=== PATIENT | male | born 1975 | race Caucasian/White ===

== ENCOUNTER 2021-08-31 14:14 | Emergency (ER) | payer OTHER, SELFPAY ==
[2021-08-31 14:19] VITALS: BP 145/96; PULSE 103; RESP 18; TEMP 36.4; O2SAT 95
--- NOTE | 2021-08-31 14:21 | W.ED.GENAD ---
Discharge Plan Disposition Patient Disposition: HOME Condition: Stable Discharge Details Clinical Impression: Sinusitis Primary Care Provider: Unknown,Unknown ED Provider: Tone Huerta Home Meds and New Rx's Prescriptions: New amoxicillin 875 mg tablet 875 mg PO BID Qty: 20 RF: 0 Continued albuterol sulfate 1.25 mg/3 mL Solution For Nebulization 1.25 mg inhalation PRN PRNRF: 0 clonazepam 0.5 mg Tablet 0.5 mg PO PRN PRNRF: 0 fluticasone propionate 50 mcg/actuation Gurley,Suspension 1 spray INTRANASAL DAILY RF: 0 Discharge Instructions Instructions: Sinusitis (ED) Additional Instructions: Amoxicillin as directed. Continue taking your Claritin but I do recommend adding on a decongestant as well. I also recommend that she quit smoking. Please watch for new or worsening symptoms and return to the ER for any concerns. Lastly, I have given you the name and number of our local ENT specialist for you to follow-up with for your chronic sinusitis Referrals: Srini Byers MD [ [facility] STAFF PHYSICIAN] - Medical Decision Making 46-year-old gentleman, current smoker, history of chronic sinusitis, presents for worsening sinus pain and pressure associated with congestion over the past 7 days. Patient states that typically when symptoms persist this long with nasal spray, antihistamines, [place] pot, he typically requires antibiotics. Clinically he appears well, nontoxic, afebrile, no lymphadenopathy but does have discomfort across the maxillary and frontal sinuses, slightly worse on the right side. We discussed the importance of smoking cessation, adding on a decongestant to his regiment, and a referral to ENT. He does have a send out Covid test pending from yesterday. I will provide a prescription for amoxicillin 875 twice daily given the duration and severity of the symptoms. Patient is comfortable this plan and has no additional questions or concerns. Standard discharge and return precautions provided This documentation was generated using [employer] system, please disregard any oddities of phrase or misspellings. HPI General Mode of arrival: ambulatory. Date/Time Provider Initiated Documentation: 08/31/21 14:17. Limitations to Documentation: no limitations. Information obtained by: patient. HPI Narrative: This is a 45-year-old gentleman, half a pack a day smoker, past medical history that includes chronic sinusitis presented to the ER reporting sinus pain and pressure for at least 7 days. Patient states that he uses nasal spray and a [place] pot on a daily basis and has added on Claritin over the past several days the symptoms not improving. He reports dull headache, moderate sinus pressure and pain, congestion. He denies fever, neck pain, sore throat, cough, breath. Does report mild bilateral ear pressure. At work yesterday he was tested for Covid, the send out test is pending. He is fully vaccinated and has had his booster for Covid. Related Data Home Medications Medication Instructions Recorded Confirmed albuterol sulfate 1.25 mg INHALATION PRN PRN 08/31/21 08/31/21 amoxicillin 875 mg PO BID #20 tab 08/31/21 clonazepam 0.5 mg PO PRN PRN 08/31/21 08/31/21 fluticasone propionate 1 spray INTRANASAL DAILY 08/31/21 08/31/21 Previous Rx's Medication Instructions Recorded amoxicillin 875 mg PO BID #20 tab 08/31/21 Review of Systems Constitutional Constitutional: Denies fever(s) and Reports headache(s) ENT Ears, Nose, Mouth, and Throat: Reports headache(s), Reports nasal congestion and Denies sore throat Cardiovascular Cardiovascular: Denies dyspnea Respiratory Respiratory: Denies cough and Denies dyspnea Integumentary/Breasts Skin/Breast: Denies rash Neurologic Neurologic: Reports headache(s) PFSH All Active Problems Sinusitis (Acute) Social History Smoking/Tobacco Use Status: Current every day Tobacco Type: cigarettes Smoking risk assessment performed?: Yes Alcohol Intake: never Drug use: Never Substance use type: does not use Do you feel safe at home: Yes Do you feel safe in your relationship?: Yes Exam Const General: cooperative, healthy appearing, comfortable and no acute distress Orientation: alert and awake [facility] Head: normal to inspection, normocephalic and atraumatic Ears: external ears normal, TM's normal bilaterally and EAC's normal General nose exam: external nose normal, mucous membranes and turbinates abnormal erythematous and nasal discharge clear Face and sinus: normal facial exam and sinus tenderness frontal and maxillary Mouth: moist mucous membranes Throat: posterior oropharynx normal Eyes General: appearance normal, both eyes and all related structures Conjunctivae: conjunctivae normal Neck Neck: normal visual inspection, full ROM, no lymphadenopathy, no meningeal signs, trachea midline, supple and nontender Resp Effort & Inspection: normal respiratory effort and able to speak in complete sentences Auscultation: clear to auscultation bilaterally Cardio Rate: regular rate Rhythm: regular rhythm Skin General skin exam: no rashes or lesions noted Neuro General: patient alert, patient awake, moves all extremities and no focal motor deficits Sensory Exam: no sensory deficits noted Psych Appearance: grossly normal Mental Status: mental status grossly normal
[2021-08-31 14:27] VITALS: RESP 18
== END 2021-08-31 14:55 | disposition home or self-care (01) ==
PROVIDERS: Emergency Provider Physician Assistant
DX: J01.90 Acute sinusitis, unspecified (principal)
CPT/HCPCS: 99283

== ENCOUNTER 2022-06-28 14:14 | Emergency (ER) | payer MEDICAID, SELFPAY ==
[2022-06-28] VITALS (31 sets, daily range): BP systolic 119–138; BP diastolic 66–83; PULSE 70–92; RESP 6–23; TEMP 36.3; O2SAT 91–97
--- NOTE | 2022-06-28 14:15 | RT.EKG_ITS ---
APPROVED REPORT Exam: Resting ECG Reason for Exam: chest pain Patient Location: E HR:93 bpm ECG Measurements Heart Rate 93 AXIS VA 232 P 173 QRSd 103 QRS 58 QT 337 T 99 QTc 415 Conclusion Sinus or ectopic atrial rhythm...P axis (-45,135) Prolonged VA interval...VA >205, V-rate 91-120 sinus rhythm, normal axis, normal intervals, consider U waves v artifact
--- NOTE | 2022-06-28 14:30 | DI.RAD_ITS ---
Exam(s) XR CHEST 2V PA LATERAL EXAM: XR CHEST 2V PA LATERAL CLINICAL HISTORY: chest pain TECHNIQUE: 2D digital imaging was performed of the chest. Two images were obtained. PA and lateral views were obtained. COMPARISON: No exams were available for comparison FINDINGS: MEDIASTINUM: Normal. HEART: Normal. PULMONARY VASCULATURE: Normal. LUNGS: Clear. PLEURAL SPACE: No pleural effusion or pneumothorax. BONE:Within normal limits for the patient's age. OTHER FINDINGS:Normal. IMPRESSION: No acute pulmonary findings. DATA REPOSITORY: RADIATION DOSE DELIVERED:
--- NOTE | 2022-06-28 14:34 | ED.GENADUL_ITS ---
Discharge Plan Disposition Patient Disposition: STILL A PATIENT Condition: Stable Discharge Details Chief Complaint: Chest Pain Clinical Impression: Chest pain Primary Care Provider: Mattie Kinney ED Provider: Tone Huerta Home Meds and New Rx's Prescriptions: No Action albuterol sulfate 1.25 mg/3 mL Solution For Nebulization 1.25 mg inhalation PRN PRN clonazepam 0.5 mg Tablet 0.5 mg PO PRN PRN Medical Decision Making This is a 46-year-old gentleman who reports chronic pain for at least a couple of years, noticed some left anterior chest wall pain which was different over the past couple of days but much more severe just prior to arrival. Clinically he appears well, nontoxic. There is certainly appears to be a musculoskeletal component of this through his trapezius-shoulder. Patient is specifically concerned this may be a cardiac etiology. Low suspicion for ACS but will provide full dose aspirin and initiate cardiac work-up. Per the PERC criteria, will not pursue D-dimer. Given his other myalgias, will obtain inflammatory markers as well. Laboratory values reveal no evidence of leukocytosis or anemia. Platelet count appropriate at 256. ESR normal at 8, electrolytes unremarkable, renal function normal, magnesium 1.8 initial troponin less than 50. CRP minimally elevated at 0.53. COVID-negative. Awaiting chest x-ray Plan to provide IV Toradol for discomfort. Patient agreeable to awaiting delta troponin. At time of discharge awaiting chest x-ray, reevaluation status post administration of Toradol, and delta troponin. Assuming patient is improving, delta troponin remains unremarkable, will likely discharge home with outpatient follow-up. Patient is agreeable to this plan. This documentation was generated using [employer] dictation system, please disregard any oddities of phrase or misspellings. Medical Records Medical records reviewed: Yes I reviewed the patient's medical records. Lab Data Lab results reviewed: Yes I reviewed the patient's lab results. Labs: Laboratory Tests Range/Units 06/28/22 06/28/22 06/28/22 14:36 14:36 14:36 WBC (4.4-10.8) 10^3/uL 10.28 RBC (4.36-5.78) 10^6/uL 4.87 Hgb (13.5-17.5) g/dL 15.1 Hct (40.0-50.0) % 45.0 MCV (80-95) fL 92 MCH (27.0-33.0) pg 31.0 MCHC (32.0-36.0) % 33.6 RDW (11.8-14.1) % 13.2 Plt Count (130-400) 10^3/uL 256 MPV (8.0-11.0) fL 10.1 Immature Gran % 0.3 Neutrophils % 62.4 Lymphocytes % 26.0 Monocytes % 7.6 Eosinophils % 3.0 Basophils % 0.7 Nucleated RBC % (0.0-0.3) % 0.0 Absolute Neutrophils (1.2-6.7) 10^3/uL 6.42 Absolute Lymphocytes (1.2-3.4) 10^3/uL 2.67 Absolute Monocytes (0.1-0.8) 10^3/uL 0.78 Absolute Eosinophils (0.0-0.7) 10^3/uL 0.31 Absolute Basophils (0.0-0.2) 10^3/uL 0.07 ESR (0-15) mm/hr Sodium (136-145) mmol/L 142 Potassium (3.5-5.1) mmol/L 4.0 Chloride (98-107) mmol/L 106 Carbon Dioxide (21.0-32.0) mmol/L 29.0 Anion Gap (3-11) mmol/L 7.0 BUN (7-18) mg/dL 18 Creatinine (0.70-1.30) mg/dL 0.8 Est GFR (CKD-EPI 2020) (mL/min/1.73m2) 109.85 Glucose (74-106) mg/dL 105 Calcium (8.5-10.1) mg/dL 9.2 Magnesium (1.8-2.4) mg/dL 1.8 Total Bilirubin (0.2-1.0) mg/dL 0.2 AST (15-37) U/L 7 L ALT (16-63) U/L 22 Alkaline Phosphatase (46-116) U/L 87 Troponin I (<or=60) ng/L < 50 C-Reactive Protein (0.0-0.3) mg/dL 0.53 H Total Protein (6.4-8.2) g/dL 7.2 Albumin (3.4-5.0) g/dL 3.8 COVID-19 Source SARS-CoV-2 (PCR) (Negative) Range/Units 06/28/22 06/28/22 14:36 14:46 WBC (4.4-10.8) 10^3/uL RBC (4.36-5.78) 10^6/uL Hgb (13.5-17.5) g/dL Hct (40.0-50.0) % MCV (80-95) fL MCH (27.0-33.0) pg MCHC (32.0-36.0) % RDW (11.8-14.1) % Plt Count (130-400) 10^3/uL MPV (8.0-11.0) fL Immature Gran % Neutrophils % Lymphocytes % Monocytes % Eosinophils % Basophils % Nucleated RBC % (0.0-0.3) % Absolute Neutrophils (1.2-6.7) 10^3/uL Absolute Lymphocytes (1.2-3.4) 10^3/uL Absolute Monocytes (0.1-0.8) 10^3/uL Absolute Eosinophils (0.0-0.7) 10^3/uL Absolute Basophils (0.0-0.2) 10^3/uL ESR (0-15) mm/hr 8 Sodium (136-145) mmol/L Potassium (3.5-5.1) mmol/L Chloride (98-107) mmol/L Carbon Dioxide (21.0-32.0) mmol/L Anion Gap (3-11) mmol/L BUN (7-18) mg/dL Creatinine (0.70-1.30) mg/dL Est GFR (CKD-EPI 2020) (mL/min/1.73m2) Glucose (74-106) mg/dL Calcium (8.5-10.1) mg/dL Magnesium (1.8-2.4) mg/dL Total Bilirubin (0.2-1.0) mg/dL AST (15-37) U/L ALT (16-63) U/L Alkaline Phosphatase (46-116) U/L Troponin I (<or=60) ng/L C-Reactive Protein (0.0-0.3) mg/dL Total Protein (6.4-8.2) g/dL Albumin (3.4-5.0) g/dL COVID-19 Source Nasal/Nares SARS-CoV-2 (PCR) (Negative) Negative ECG Data Attestation: I personally reviewed and interpreted this ECG (s) as follows: Interpretation: Sinus or ectopic atrial rhythm, ventricular rate of 93, prolonged [place] interval, no STEMI. HPI General Mode of arrival: ambulatory . Date/Time Provider Initiated Documentation: 06/28/22 14:16 . Limitations to Documentation: no limitations . Information obtained by: patient . HPI Narrative: This is a 46-year-old gentleman, current smoker, reports that he is currently being worked up at [facility] for potential RA, presenting to the ER for a left-sided chest pain. Patient reports several years of atypical joint, muscle pain, mostly in his bilateral shoulders, upper extremities, sometimes lower extremities, etc. This is being worked up as an outpatient. He states that over the past couple of days he felt slightly different pain in his left lateral chest, anterior aspect. Nothing really makes his pain worse or better. He states just prior to arrival while shopping the pain was severe, he was concerned that he may be having a heart attack, came to the ER for further evaluation. He denies recent illness, trauma, headache, shortness of breath, cough, numbness, tingling, weakness, abdominal pain, pain or swelling in his calves. He has not taken any medication prior to arrival. Related Data Home Medications Medication Instructions Recorded Confirmed albuterol sulfate 1.25 mg/3 mL 1.25 mg inhalation PRN PRN 08/31/21 06/28/22 solution for nebulization clonazepam 0.5 mg tablet 0.5 mg PO PRN PRN 08/31/21 06/28/22 Allergies Allergy/AdvReac Type Severity Reaction Status Date / Time clindamycin Allergy Intermediate Hives Unverified 06/28/22 14:29 General Stated Complaint: Chest Pain [place]: 2 Review of Systems Constitutional Constitutional: Denies fatigue, Denies fever(s), Denies headache(s) and Denies weakness ENT Ears, Nose, Mouth, and Throat: Denies headache(s) and Reports neck pain Cardiovascular Cardiovascular: Reports chest pain and Denies dyspnea Respiratory Respiratory: Denies cough and Denies dyspnea Gastrointestinal Gastrointestinal: Denies abdominal pain, Denies nausea and Denies vomiting Musculoskeletal Musculoskeletal: Reports back pain, Reports neck pain, Denies numbness and Denies tingling Integumentary/Breasts Skin/Breast: Denies rash Neurologic Neurologic: Denies headache(s), Denies numbness, Denies tingling and Denies weakness Endocrine Endocrine: Denies fatigue Hematologic/Lymphatic Hematologic/Lymphatic: Denies easy bleeding and Denies easy bruising PFSH All Active Problems (Updated 06/28/22 @ 15:39 by LOUIE Green) Sinusitis (Acute) Chest pain (Acute) Social History Smoking/Tobacco Use Status: Current every day Tobacco Type: cigarettes Smoking risk assessment performed?: Yes Alcohol Intake: never Drug use: Never Substance use type: does not use Do you feel safe at home: Yes Do you feel safe in your relationship?: Yes Exam Const General: cooperative, healthy appearing, comfortable and no acute distress Orientation: alert, awake and oriented x3 HENMT Head: normal to inspection, normocephalic and atraumatic Face and sinus: normal facial exam Mouth: moist mucous membranes Eyes General: appearance normal, both eyes and all related structures Conjunctivae: conjunctivae normal Neck Neck: normal visual inspection, full ROM, no meningeal signs, trachea midline, s upple and tender (Left trapezius) Chest Chest: normal inspection of the chest and normal palpation of entire chest wall Resp Effort & Inspection: normal respiratory effort and able to speak in complete sentences Auscultation: clear to auscultation bilaterally Cardio Rate: regular rate Rhythm: regular rhythm GI Palpation: soft and nontender Back/Spine/Pelvis Back: no CVA tenderness and No back tenderness Skin General skin exam: no rashes or lesions noted Neuro General: patient alert, patient awake, moves all extremities and no focal motor deficits Cognition: normal cognition Speech: speech normal Gait: normal gait Motor: muscle tone normal throughout Sensory Exam: no sensory deficits noted Extrem General: normal to inspection, full ROM, capillary refill normal, no pedal edema and no calf tenderness Psych Appearance: grossly normal Mental Status: mental status grossly normal Course Vital Signs Vital signs: Vital Signs Temperature 36.3 C L 06/28/22 14:18 Pulse 92 H 06/28/22 14:18 Respiratory Rate 16 06/28/22 14:18 Blood Pressure 130/81 06/28/22 14:18 Pulse Oximetry 97 06/28/22 14:18 Temperature 36.3 C L 06/28/22 14:18 Temperature Source Tympanic 06/28/22 14:18 Pulse 92 H 06/28/22 14:18 Respiratory Rate 16 06/28/22 14:25 Respiratory Effort Non-Labored 06/28/22 14:25 Respiratory Depth Normal 06/28/22 14:25 Respiratory Pattern Normal 06/28/22 14:25 Blood Pressure 130/81 06/28/22 14:18 Blood Pressure Position Supine 06/28/22 14:18 Pulse Oximetry 97 06/28/22 14:18 Oxygen Delivery Method Room Air 06/28/22 14:18 Oxygen Flow Rate 0 06/28/22 14:18 Pain Level 8 06/28/22 14:25
[2022-06-28 14:47] LABS: Abs Immature Grans 0.03 10^3/uL (0.0-0.06); Absolute Basophil Count 0.07 10^3/uL (0.0-0.2); Absolute Eosinophil Count 0.31 10^3/uL (0.0-0.7); Absolute Lymphocyte Count 2.67 10^3/uL (1.2-3.4); Absolute Monocyte Count 0.78 10^3/uL (0.1-0.8); Absolute Neutrophil Count 6.42 10^3/uL (1.2-6.7); Basophils % 0.7; HGB 15.1 g/dL (13.5-17.5); Immature Grans % 0.3; MCHC 33.6 % (32.0-36.0); MCV 92 fL (80-95); MPV 10.1 fL (8.0-11.0); Monocytes % 7.6; Neutrophils % 62.4; Platelet Count 256 10^3/uL (130-400); RBC 4.87 10^6/uL (4.36-5.78); RDW 13.2 % (11.8-14.1); RDW-SD 45.1 fL; WBC 10.28 10^3/uL (4.4-10.8)
[2022-06-28] MEDS: Aspirin 81 MG CHEW 324 MG CH (14:48)
[2022-06-28 14:50] LABS: Source Nasal/Nares
[2022-06-28 15:21] LABS: ALT 22 U/L (16-63); AST 7 U/L (15-37); Albumin 3.8 g/dL (3.4-5.0); Alkaline Phosphatase 87 U/L (46-116); BUN 18 mg/dL (7-18); Bilirubin, Total 0.2 mg/dL (0.2-1.0); CREATININE 0.8 mg/dL (0.70-1.30); Calcium 9.2 mg/dL (8.5-10.1); Chloride 106 mmol/L (98-107); Estimated GFR 109.85 (mL/min/1.73m2); Glucose 105 mg/dL (74-106); Magnesium 1.8 mg/dL (1.8-2.4); Sodium 142 mmol/L (136-145); Total Protein 7.2 g/dL (6.4-8.2); Troponin I < 50 ng/L (<or=60)
[2022-06-28 15:24] LABS: ESR 8 mm/hr (0-15)
[2022-06-28 15:31] LABS: C-Reactive Protein 0.53 mg/dL (0.0-0.3)
[2022-06-28 15:33] LABS: COVID-19 PCR Negative (Negative)
[2022-06-28] MEDS: Ketorolac 30 MG/ML VIAL IVP (15:35)
--- NOTE | 2022-06-28 16:19 | DI.VRAD_ITS ---
PROCEDURE INFORMATION: Exam: XR Chest Exam date and time: 06/28/2022 2:57 PM Age: 46 years old Clinical indication: Other: Chest pain TECHNIQUE: Imaging protocol: Radiologic exam of the chest. Views: 2 views. COMPARISON: No relevant prior studies available. FINDINGS: Lungs: Unremarkable. No consolidation. Pleural spaces: Unremarkable. No pleural effusion. No pneumothorax. Heart/Mediastinum: Unremarkable. No cardiomegaly. Bones/joints: Unremarkable. IMPRESSION: No acute findings. Dictated and Authenticated by: Yancy Yarbrough MD. Ordering:EDUARDO Wayne MD
[2022-06-28 18:20] LABS: Troponin I < 50 ng/L (<or=60)
== END 2022-06-28 18:45 | disposition still patient (30) ==
PROVIDERS: Physician Assistant; Emergency Provider Physician Assistant; PCP Family Medicine
DX: R07.89 Other chest pain (principal); F17.210 Nicotine dependence, cigarettes, uncomplicated; Z20.822 Contact with and (suspected) exposure to COVID-19; R79.82 Elevated C-reactive protein (CRP)
CPT/HCPCS: 36415; 80053; 85652; 87635; 93005; 96374; 99284; 71046; 83735; 84484; 85025; 86140; 93010; 99285; J1885

== ENCOUNTER 2023-09-21 11:58 | Outpatient (REF) | payer OTHER, BC, SELFPAY ==
--- NOTE | 2023-09-21 11:15 | SKI_PTH ---
PATIENT: Girish Soria LOC: [facility] U#:[id number] AGE/SX: 47/M ROOM: RE09/21/[address]: Srini Byers MD : 1975 BED: DIS: 09/21/2023 SPEC #: [id number] RECD: 09/21/23 18:07 STATUS: OSWALDO REPablo #: [id number] MARNIE: 09/21/23 11:[address]: Srini Byers DEPT: Surgical Specimen RECD BY: Jen Drake ENTERED: 09/21/23 18:08 SP TYPE: MARY KATE MELÉNDEZ DR: Franc Bourgeois Tissues: 1 - SKIN BIOPSY(SHAVE/PUNCH) 2 - UVULA Procedures: GROSS AND MICRO LEVEL 4 SKIN LEVEL 4 Comments: [id number]
== END 2023-09-21 11:59 | disposition home or self-care (01) ==
LOC: LBN 11:58
PROVIDERS: PCP Family Medicine; Visit Provider Otolaryngology
DX: D04.39 Carcinoma in situ of skin of other parts of face (principal)
CPT/HCPCS: 88305; 88304

== ENCOUNTER 2023-09-27 14:48 | Outpatient (REF) | payer OTHER, BC, SELFPAY ==
--- NOTE | 2023-09-27 11:40 | SKI_PTH ---
PATIENT: Girish Soria LOC: [facility] U#:[id number] AGE/SX: 48/M ROOM: RE09/27/[address]: Srini Byers MD : 1975 BED: DIS: 09/27/2023 SPEC #: [id number] RECD: 09/27/23 16:01 STATUS: OSWALDO REPablo #: [id number] MARNIE: 09/27/23 11:[address]: Srini Byers DEPT: Surgical Specimen RECD BY: Jen Drake ENTERED: 09/27/23 16:01 SP TYPE: MARY KATE MELÉNDEZ DR: Franc Bourgeois Tissues: 1 - SKIN BIOPSY(SHAVE/PUNCH) Procedures: SKIN LEVEL 4 Comments: [id number]
== END 2023-09-27 14:49 | disposition home or self-care (01) ==
LOC: LBN 14:48
PROVIDERS: PCP Family Medicine; Visit Provider Otolaryngology
DX: C44.319 Basal cell carcinoma of skin of other parts of face (principal)
CPT/HCPCS: 88305

== ENCOUNTER 2023-10-14 10:29 | Outpatient (REF) | payer OTHER, BC, SELFPAY ==
[2023-10-14 14:58] LABS: HCT 48.7 % (40.0-50.0); HGB 16.3 g/dL (13.5-17.5); MCH 30.7 pg (27.0-33.0); MCHC 33.5 % (32.0-36.0); MCV 92 fL (80-95); MPV 10.7 fL (8.0-11.0); Platelet Count 280 10^3/uL (130-400); RBC 5.31 10^6/uL (4.36-5.78); RDW 13.3 % (11.8-14.1); RDW-SD 45.3 fL; WBC 10.78 10^3/uL (4.4-10.8)
[2023-10-14 15:02] LABS: ESR 11 mm/hr (0-15)
[2023-10-14 15:30] LABS: ALT 37 U/L (16-63); AST 14 U/L (15-37); Alkaline Phosphatase 82 U/L (46-116); Anion Gap 6.2 mmol/L (3-11); BUN 11 mg/dL (7-18); Bilirubin, Total 0.5 mg/dL (0.2-1.0); CO2 31.8 mmol/L (21.0-32.0); CREATININE 0.8 mg/dL (0.70-1.30); Calcium 9.3 mg/dL (8.5-10.1); Calculated LDL 84 mg/dL (<100); Chloride 103 mmol/L (98-107); Cholesterol 153 mg/dL (<200); Estimated GFR 108.49 (mL/min/1.73m2); Glucose 96 mg/dL (74-106); HDL Cholesterol 60 mg/dL (40-60); Potassium 4.5 mmol/L (3.5-5.1); Sodium 141 mmol/L (136-145); Total Protein 7.2 g/dL (6.4-8.2); Triglyceride 49 mg/dL (<150)
== END 2023-10-14 10:30 | disposition home or self-care (01) ==
LOC: NCHCN 10:29
PROVIDERS: PCP Family Medicine; Visit Provider Family Medicine
DX: Z00.00 Encounter for general adult medical examination without abnormal findings (principal)
CPT/HCPCS: 80053; 80061; 85027; 85652

== ENCOUNTER 2024-01-19 10:11 | Outpatient (REF) | payer OTHER, SELFPAY ==
[2024-01-19 14:43] LABS: C-Reactive Protein 0.56 mg/dL (<or=0.5); TSH (W/Ref FT4) 1.47 uIU/mL (0.36-3.74)
[2024-01-19 22:18] LABS: Rheumatoid Factor 13.5 IU/mL (<12.0)
[2024-01-20 08:46] LABS: Cyclic Citrullinated Peptide <2.5 U/mL (<5.0)
[2024-01-20 13:28] LABS: ANA Interpretation Negative (Negative)
[2024-02-01 17:34] LABS: Testosterone, Free 7.83 ng/dL (4.26-16.4); Testosterone, Total 308 ng/dL (240-950)
== END 2024-01-19 10:12 | disposition home or self-care (01) ==
LOC: NCHCN 10:11
PROVIDERS: PCP Family Medicine; Visit Provider Family Medicine
DX: M25.50 Pain in unspecified joint (principal); R53.83 Other fatigue
CPT/HCPCS: 84402; 84403; 86200; 84443; 86038; 86140; 86431

== ENCOUNTER 2024-06-28 16:38 | Outpatient (REF) | payer OTHER, SELFPAY ==
[2024-06-30 15:28] LABS: Chlamydia Result Negative (Negative); GC Result Negative (Negative)
== END 2024-06-28 16:39 | disposition home or self-care (01) ==
LOC: LBN 16:38
PROVIDERS: PCP Family Medicine; Visit Provider Physician Assistant Medical
DX: R30.0 Dysuria (principal)
CPT/HCPCS: 87491; 87591

== ENCOUNTER 2025-01-16 18:56 | Emergency (ER) | payer OTHER, SELFPAY ==
[2025-01-16 19:00] VITALS: BP 143/83; PULSE 84; RESP 20; TEMP 36.9; O2SAT 94
--- NOTE | 2025-01-16 19:00 | RT.EKG_ITS ---
APPROVED REPORT Exam: Resting ECG Reason for Exam: chest tightness Patient Location: E HR:83 bpm ECG Measurements Heart Rate 83 AXIS NE 172 P 45 QRSd 115 QRS -42 QT 359 T 61 QTc 423 Conclusion Sinus rhythm 83 normal axis no stemi
--- NOTE | 2025-01-16 19:30 | DI.RAD_ITS ---
Exam(s) XR CHEST 2V PA LATERAL EXAM: XR CHEST 2V PA LATERAL CLINICAL HISTORY: Chest pain TECHNIQUE: 2D digital imaging was performed. Two views. COMPARISON: CR,XR XR CHEST 2V PA LATERAL from 06/28/2022 FINDINGS: HEART: Normal size. Aorta: Not dilated. PULMONARY VASCULATURE: Normal. MEDIASTINUM: Unremarkable. LUNGS: Clear. PLEURAL SPACE: No pleural effusion or pneumothorax. BONE:Unremarkable for age. SOFT TISSUES: Unremarkable. IMPRESSION: No acute abnormality. DATA REPOSITORY: RADIATION DOSE DELIVERED:
[2025-01-16] MEDS: Aspirin 81 MG CHEW 324 MG CH (19:40)
[2025-01-16 19:44] LABS: Abs Immature Grans 0.04 10^3/uL (0.0-0.06); Absolute Basophil Count 0.06 10^3/uL (0.0-0.2); Absolute Eosinophil Count 0.31 10^3/uL (0.0-0.7); Absolute Lymphocyte Count 3.19 10^3/uL (1.2-3.4); Absolute Monocyte Count 0.96 10^3/uL (0.1-0.8); Basophils % 0.5 %; Eosinophils % 2.8 %; HCT 47.3 % (40.0-50.0); Immature Grans % 0.4 %; Lymphocytes % 28.6 %; MCH 30.7 pg (27.0-33.0); MCHC 33.8 % (32.0-36.0); MCV 91 fL (80-95); MPV 10.1 fL (8.0-11.0); Monocytes % 8.6 %; Neutrophils % 59.1 %; Platelet Count 239 10^3/uL (130-400); RBC 5.22 10^6/uL (4.36-5.78); RDW 13.3 % (11.8-14.1); RDW-SD 44.8 fL; WBC 11.17 10^3/uL (4.4-10.8)
[2025-01-16 19:48] VITALS: RESP 20
[2025-01-16 20:07] LABS: ALT 33 U/L (16-63); AST 20 U/L (15-37); Albumin 3.8 g/dL (3.4-5.0); Alkaline Phosphatase 80 U/L (46-116); Anion Gap 5.7 mmol/L (3-11); Bilirubin, Total 0.2 mg/dL (0.2-1.0); CO2 31.3 mmol/L (21.0-32.0); CREATININE 0.8 mg/dL (0.70-1.30); Chloride 104 mmol/L (98-107); Estimated GFR 107.82 (mL/min/1.73m2); Glucose 101 mg/dL (74-106); NT-proBNP 19 pg/mL (<300); Potassium 3.9 mmol/L (3.5-5.1); Sodium 141 mmol/L (136-145); Total Protein 7.5 g/dL (6.4-8.2); Troponin I 6 ng/L (<or=76)
--- NOTE | 2025-01-16 20:11 | DI.VRAD_ITS ---
PROCEDURE INFORMATION: Exam: XR Chest Exam date and time: 01/16/2025 7:42 PM Age: 49 years old Clinical indication: Other: Chest pain TECHNIQUE: Imaging protocol: Radiologic exam of the chest. Views: 2 views. COMPARISON: CR XR CHEST 2V PA LATERAL 06/28/2022 2:57 PM FINDINGS: Lungs: Unremarkable. No consolidation. Pleural spaces: Unremarkable. No pleural effusion. No pneumothorax. Heart/Mediastinum: Unremarkable. No cardiomegaly. Bones/joints: Unremarkable. IMPRESSION: No acute findings. Dictated and Authenticated by: Elliot Figueroa MD. Orderin Angelique Akers MD
[2025-01-16 20:17] LABS: BUN 16 mg/dL (7-18)
[2025-01-16 21:15] LABS: Troponin I 5 ng/L (<or=76)
[2025-01-16 21:36] VITALS: BP 154/77; PULSE 80; RESP 16; O2SAT 95
--- NOTE | 2025-01-16 21:55 | ED.GENADUL_ITS ---
Discharge Plan Disposition Patient Disposition: Home Condition: Stable Discharge Details Clinical Impression: Chest pain Primary Care Provider: Franc Bourgeois ED Provider: Keyonna Merino Home Meds and New Rx's Prescriptions: No Action albuterol sulfate [Ventolin HFA] 90 mcg/actuation HFA aerosol inhaler 1 inh inhalation UNKNOWN triamcinolone acetonide 55 mcg aerosol,spray 1 spray intranasal DAILY Rx Instructions: administer into each nostril triamcinolone acetonide 55 mcg aerosol,spray 1 spray intranasal DAILY Rx Instructions: administer into each nostril albuterol sulfate 1.25 mg/3 mL Solution For Nebulization 1.25 mg inhalation PRN PRN clonazepam 0.5 mg Tablet 0.5 mg PO PRN PRN celecoxib 200 mg capsule 200 mg PO DAILY amoxicillin 500 mg capsule 500 mg PO DAILY betamethasone, augmented 0.05 % ointment 1 applic TOPICAL DAILY mometasone 50 mcg/actuation spray,non-aerosol 1 spray INTRANASAL BID PRN Patient Comments: USE 1 SPRAY(S) IN EACH NOSTRIL TWICE DAILY NEEDED nystatin 100,000 unit/mL suspension 1 ml PO DAILY PRN cyclobenzaprine 10 mg tablet 10 mg PO TID PRNQty: 20 0RF Discharge Instructions Additional Instructions: Your EKG, chest x-ray and blood work are all reassuring that this pain that you are feeling is not from a heart attack. It is most likely from muscle strain from coughing or and irritation around your lung lining called pleurisy. This can happen after a viral infection that you had. The treatment for this would be NSAIDs, please continue taking your regular doses. Follow-up with your PCP as needed. HPI General Date/Time Provider Initiated Documentation: 01/16/25 19:05 . Limitations to Documentation: no limitations . Information obtained by: patient . HPI Narrative: 49-year-old gentleman with past medical history of rheumatoid arthritis presents for evaluation of chest pain. He reports that a few weeks ago he had a URI and has been coughing quite a bit. He states that he was also shoveling a lot of mulch he was not sure if this caused his pain. He reports that he had left- sided chest pain that did not radiate, but then it was moved to the right side to his back, and in multiple different spots. It was not accompanied by shortness of breath, nausea or diaphoresis. He reports that he does smoke, denies diabetes and reports that his hypertension resolved after weight loss. Related Data Home Medications ?Medication ?Instructions ?Recorded ?Confirmed albuterol sulfate 1.25 mg/3 mL 1.25 mg inhalation PRN PRN 08/31/21 01/16/25 solution for nebulization clonazepam 0.5 mg tablet 0.5 mg PO PRN PRN 08/31/21 01/16/25 cyclobenzaprine 10 mg tablet 10 mg PO TID PRN #20 tabs 06/28/22 01/16/25 albuterol sulfate 90 mcg/actuation 1 inh inhalation UNKNOWN 07/30/23 01/16/25 aerosol inhaler (Ventolin HFA) triamcinolone acetonide 55 mcg 1 spray intranasal DAILY 07/30/23 01/16/25 nasal spray aerosol triamcinolone acetonide 55 mcg 1 spray intranasal DAILY 09/21/23 01/16/25 nasal spray aerosol amoxicillin 500 mg capsule 500 mg PO DAILY 01/16/25 01/16/25 betamethasone, augmented 0.05 % 1 applic topical DAILY 01/16/25 01/16/25 topical ointment celecoxib 200 mg capsule 200 mg PO DAILY 01/16/25 01/16/25 mometasone 50 mcg/actuation nasal 1 spray intranasal BID PRN 01/16/25 01/16/25 spray nystatin 100,000 unit/mL oral 1 ml PO DAILY PRN 01/16/25 01/16/25 suspension Previous Rx's ?Medication ?Instructions ?Recorded cyclobenzaprine 10 mg tablet 10 mg PO TID PRN #20 tabs 06/28/22 Allergies Allergy/AdvReac Type Severity Reaction Status Date / Time clindamycin Allergy Intermediate Hives Unverified 10/04/23 15:27 amoxicillin (From Augmentin) Allergy Verified 10/04/23 15:27 clavulanic acid (From Allergy Verified 10/04/23 15:27 Augmentin) General Stated Complaint: Chest Pain DAYLIN: 3 Exam Narrative Exam Narrative: Review of Systems: All systems reviewed & are unremarkable except as noted in HPI and below Well-developed, no acute distress NCAT PERRL, normal conjunctiva RRR mild reproducible chest wall tenderness Unlabored respiratory effort clear bilaterally Nondistended abdomen Course Vital Signs Vital signs: Vital Signs Temperature 36.9 C 01/16/25 19:00 Pulse 84 01/16/25 19:00 Respiratory Rate 20 01/16/25 19:00 Blood Pressure 143/83 H 01/16/25 19:00 Pulse Oximetry 94 01/16/25 19:00 Temperature 36.9 C 01/16/25 19:00 Temperature Source Oral 01/16/25 19:00 Pulse 80 01/16/25 21:36 Respiratory Rate 16 01/16/25 21:36 Respiratory Effort Normal, Non-Labored 01/16/25 19:48 Respiratory Depth Normal 01/16/25 19:48 Respiratory Pattern Normal 01/16/25 19:48 Blood Pressure 154/77 H 01/16/25 21:36 Blood Pressure Position Sitting 01/16/25 19:00 Pulse Oximetry 95 01/16/25 21:36 Oxygen Delivery Method Room Air 01/16/25 19:00 Oxygen Flow Rate 0 01/16/25 19:00 Pain Level 4 01/16/25 19:48 Lab/Test Results Lab/Test Results: Laboratory Tests Range/Units 01/16/25 01/16/25 19:33 20:46 WBC (4.4-10.8) 10^3/uL 11.17 H RBC (4.36-5.78) 10^6/uL 5.22 Hgb (13.5-17.5) g/dL 16.0 Hct (40.0-50.0) % 47.3 MCV (80-95) fL 91 MCH (27.0-33.0) pg 30.7 MCHC (32.0-36.0) % 33.8 RDW (11.8-14.1) % 13.3 Plt Count (130-400) 10^3/uL 239 MPV (8.0-11.0) fL 10.1 Immature Gran % % 0.4 Neutrophils % % 59.1 Lymphocytes % % 28.6 Monocytes % % 8.6 Eosinophils % % 2.8 Basophils % % 0.5 Nucleated RBC % (0.0-0.3) % 0.0 Absolute Neutrophils (1.2-6.7) 10^3/uL 6.60 Absolute Lymphocytes (1.2-3.4) 10^3/uL 3.19 Absolute Monocytes (0.1-0.8) 10^3/uL 0.96 H Absolute Eosinophils (0.0-0.7) 10^3/uL 0.31 Absolute Basophils (0.0-0.2) 10^3/uL 0.06 Sodium (136-145) mmol/L 141 Potassium (3.5-5.1) mmol/L 3.9 Chloride (98-107) mmol/L 104 Carbon Dioxide (21.0-32.0) mmol/L 31.3 Anion Gap (3-11) mmol/L 5.7 BUN (7-18) mg/dL 16 Creatinine (0.70-1.30) mg/dL 0.8 Est GFR (CKD-EPI 2020) (mL/min/1.73m2) 107.82 Glucose (74-106) mg/dL 101 Calcium (8.5-10.1) mg/dL 10.0 Total Bilirubin (0.2-1.0) mg/dL 0.2 AST (15-37) U/L 20 ALT (16-63) U/L 33 Alkaline Phosphatase (46-116) U/L 80 Troponin I (<or=76) ng/L 6 5 NT-Pro-B Natriuret Pep (<300) pg/mL 19 Total Protein (6.4-8.2) g/dL 7.5 Albumin (3.4-5.0) g/dL 3.8 Medical Decision Making Emergent evaluation of chest pain. Initial differential includes musculoskeletal pain, pleurisy, pneumonia, ACS. Patient does have risk factors including obesity and smoking history. EKG independently interpreted: Sinus 83 normal axis, nonspecific ST changes, no STEMI. His chest pain is reproducible in nature but does not have active ongoing chest pain at this time. ED workup including serial troponins were negative, chest x-ray was reviewed, no focal consolidation, signs of cardiomegaly or pleural effusion. At this time I have low suspicion that this is cardiac related chest pain and feel that the patient is stable for discharge home. Recommend follow-up with PCP if symptoms persist. Likely mild musculoskeletal pain or pleurisy from recent URI infection and persistent coughing. Recommend continuation of NSAIDs for treatment of symptoms. Quality:SDOH Health Related Social Needs: No Data to Display PFSH All Active Problems (Updated 01/16/25 @ 21:29 by Keyonna Merino MD) Chest pain (Acute) Skin lesion of face (Acute) Neck fullness (Acute) Sinusitis (Acute) Medical History (Updated 01/16/25 @ 21:29 by Keyonna Merino MD) Lesion of uvula Removed fall 2022, no recurrence thus far Basal cell carcinoma (BCC) of left cheek Completely excised [address] Byers Oral candidiasis GERD (gastroesophageal reflux disease) Eustachian tube dysfunction Chronic maxillary sinusitis Social History Smoking/Tobacco Use Status: Current every day Tobacco Type: cigarettes Years smoked: 20 Smoking risk assessment performed?: Yes Alcohol Intake: never Drug use: Never Substance use type: does not use Do you feel safe at home: Yes Do you feel safe in your relationship?: Yes
== END 2025-01-16 21:38 | disposition home or self-care (01) ==
PROVIDERS: Emergency Provider Emergency Medicine; PCP Family Medicine
DX: R07.9 Chest pain, unspecified (principal); J45.909 Unspecified asthma, uncomplicated; M06.9 Rheumatoid arthritis, unspecified; F17.210 Nicotine dependence, cigarettes, uncomplicated
CPT/HCPCS: 36415; 80053; 93005; 99285; 71046; 83880; 84484; 85025; 93010; 99284

== ENCOUNTER 2025-08-31 16:23 | Outpatient (REF) | payer OTHER, SELFPAY ==
[2025-08-31 21:04] LABS: HCT 46.4 % (40.0-50.0); HGB 15.6 g/dL (13.5-17.5); MCH 31.3 pg (27.0-33.0); MCHC 33.6 % (32.0-36.0); MCV 93 fL (80-95); MPV 10.8 fL (8.0-11.0); Platelet Count 269 10^3/uL (130-400); RBC 4.98 10^6/uL (4.36-5.78); RDW 13.3 % (11.8-14.1); RDW-SD 45.6 fL; WBC 10.42 10^3/uL (4.4-10.8)
[2025-08-31 21:30] LABS: Magnesium 2.0 mg/dL (1.6-2.6)
[2025-08-31 21:31] LABS: ALT 32 U/L (10-49); AST 22 U/L (<34); Albumin 4.4 g/dL (3.2-5.0); Alkaline Phosphatase 80 U/L (46-116); Anion Gap 6.3 mmol/L (3-11); BUN 13 mg/dL (9-23); Bilirubin, Total 0.2 mg/dL (0.2-1.2); CO2 28.7 mmol/L (20.0-31.0); Calcium 9.4 mg/dL (8.3-10.6); Chloride 105 mmol/L (98-107); Glucose 85 mg/dL (74-106); Potassium 4.2 mmol/L (3.5-5.1); Sodium 140 mmol/L (136-145); Total Protein 7.1 g/dL (5.7-8.2)
[2025-08-31 21:33] LABS: Vitamin D 25 Total 30 ng/mL (30-100)
== END 2025-08-31 16:24 | disposition home or self-care (01) ==
LOC: NCHCN 16:23
PROVIDERS: PCP Family Medicine; Visit Provider Physician Assistant
DX: R25.2 Cramp and spasm (principal)
CPT/HCPCS: 80053; 82306; 85027; 83735